=== PATIENT | female | born 1985 | race Caucasian/White ===

== ENCOUNTER 2020-10-06 19:09 | Emergency (ER) | payer BC ==
[2020-10-06] MEDS ORDERED: Aspirin 325 MG Tab.EC PO ONE (19:17)
[2020-10-06] MEDS ORDERED: Dexamethasone 4 MG/ML SDV IVPUSH ONE (19:18)
[2020-10-06] MEDS ORDERED: Sodium Chloride 0.9% 1,000 ML IV SCH (19:30)
[2020-10-06] MEDS ORDERED: Iopamidol 755 Mg/ML 100 ML Bottle IV ONE (19:32)
--- NOTE | 2020-10-06 19:51 | EDM.PDOC ---
ED HPI GENERAL MEDICAL PROBLEM - General Chief Complaint: Respiratory Problem Stated Complaint: SOB Time Seen by Provider: 10/06/20 19:20 Source of Information: Reports: Patient, Other (Clinic records ) History Limitations: Reports: No Limitations - History of Present Illness INITIAL COMMENTS - FREE TEXT/NARRATIVE: Sent in from clinic States she was diagnosed with COVID 09/19 had symptoms from09/18, unsure of actual day of exposure since then had been doing well , then developed sob that got worse today unsure of PE Oxygen level was 99% on RA Onset: Today Duration: Hour(s):, Getting Worse Location: Reports: Generalized Quality: Reports: Ache Severity: Mild Improves with: Reports: None Worsens with: Reports: Breathing, Movement Context: Reports: Activity Associated Symptoms: Reports: Headaches, Loss of Appetite, Malaise - Related Data Allergies Allergy/AdvReac Type Severity Reaction Status Date / Time No Known Allergies Allergy Verified 10/06/20 19:51 Home Meds: Home Meds Ibuprofen [Motrin] 600 mg PO TID PRN 07/12/15 [History] Omeprazole 40 mg PO DAILY 07/12/15 [History] norgestimate-ethinyl estradioL [Tri-Linyah Tablet] 1 each PO DAILY 07/12/15 [History] valACYclovir [Valtrex] 2,000 mg PO BID PRN 07/12/15 [History] Multivitamin [Multi-Day Vitamins] 1 each PO DAILY 07/13/15 [History] Sucralfate [Carafate] 1 gm PO QID 07/13/15 [History] Aspirin 81 mg PO BEDTIME #30 tab.chew 10/06/20 [Rx] Azithromycin [Zithromax] 500 mg PO DAILY #5 tab 10/06/20 [Rx] dexAMETHasone [Dexamethasone] 8 mg PO DAILY 10 Days #20 tab 10/06/20 [Rx] guaiFENesin [Mucus Relief ER] 600 mg PO BID #20 tab.er.12h 10/06/20 [Rx] ED ROS GENERAL - Review of Systems Review Of Systems: See Below Constitutional: Reports: No Symptoms HEENT: Reports: No Symptoms Respiratory: Reports: No Symptoms Cardiovascular: Reports: No Symptoms Endocrine: Reports: No Symptoms GI/Abdominal: Reports: No Symptoms ED EXAM, GENERAL - Physical Exam Exam: See Below Exam Limited By: No Limitations General Appearance: Alert, WD/WN, No Apparent Distress, Anxious, Other (hyperventilatin) Eye Exam: Bilateral Eye: EOMI Ears: Normal External Exam Ear Exam: Bilateral Ear: TM Dull Nose: Normal Inspection Throat/Mouth: Normal Oropharynx Head: Atraumatic, Normocephalic Neck: Supple, Non-Tender Respiratory/Chest: No Respiratory Distress, Lungs Clear, Normal Breath Sounds Cardiovascular: Normal Peripheral Pulses, Regular Rate, Rhythm GI/Abdominal: Soft, Non-Tender Extremities: Normal Range of Motion, No Pedal Edema Neurological: Alert, Oriented, CN II-XII Intact Psychiatric: Anxious Skin Exam: Warm, Dry, Intact Course - Vital Signs Last Recorded V/S: Last Vital Signs Temp Pulse 73 10/06/20 20:40 Resp 18 10/06/20 20:40 BP 130/75 10/06/20 20:40 Pulse Ox 100 10/06/20 20:40 - Orders/Labs/Meds Orders: Active Orders 24 hr Category Date Time Status Ang Chest [CT] Stat Exams 10/06/20 19:18 Taken Sodium Chloride 0.9% [Normal Saline] 1,000 ml Med 10/06/20 19:30 Active IV ASDIRECTED Medication Orders Sodium Chloride (Normal Saline) 1,000 mls @ 999 mls/hr IV ASDIRECTED PAVAN Last Admin: 10/06/20 19:40 Dose: 999 mls/hr Documented by: JOSE Labs: Laboratory Tests 10/06/20 10/06/20 10/06/20 Range/Units 19:25 19:25 19:25 WBC 12.0 H (3.0-10.3) x10-3/uL RBC 4.79 (3.60-5.20) x10(6)uL Hgb 13.2 (11.4-15.5) g/dL Hct 40.6 (34.2-48.2) % MCV 84.9 (76.7-100.5) fL MCH 27.6 (23.9-33.9) pg MCHC 32.5 (31.9-34.8) g/dL RDW 13.0 (12.3-16.5) % Plt Count 383 (151-488) x10(3)uL MPV 7.3 (7.1-12.4) fL Neut % (Auto) 54.0 (30.8-76.2) % Lymph % (Auto) 36.7 (18.4-52.1) % [place] % (Auto) 8.0 (4.4-15.7) % Eos % (Auto) 0.8 (0.6-8.1) % Baso % (Auto) 0.5 (0.2-1.5) % Neut # (Auto) 6.5 H (1.5-6.3) x10-3/uL Lymph # (Auto) 4.4 (1.0-4.4) x10-3/uL [place] # (Auto) 1.0 (0.3-1.0) x10-3/uL Eos # (Auto) 0.1 (0.0-0.8) x10-3/uL Baso # (Auto) 0.1 (0.0-0.1) x10-3/uL PT 10.3 (9.0-11.1) sec INR 0.95 L (1.00-1.24) D-Dimer, Quantitative 0.27 (0.0-0.59) mg/LFEU Sodium 138 (135-145) mmol/L Potassium 3.2 L (3.5-5.3) mmol/L Chloride 101 (100-110) mmol/L Carbon Dioxide 25 (21-32) mmol/L BUN 8 (7-18) mg/dL Creatinine 0.9 (0.55-1.02) mg/dL Est Cr Clr Drug Dosing TNP Estimated GFR (MDRD) > 60 (>60) BUN/Creatinine Ratio 8.9 L (9-20) Glucose 104 (80-116) mg/dL Calcium 9.4 (8.6-10.2) mg/dL Total Bilirubin 0.5 (0.1-1.3) mg/dL AST 22 (5-25) IU/L ALT 40 H (12-36) U/L Alkaline Phosphatase 63 (56-112) IU/L Total Protein 8.3 H (6.0-8.0) g/dL Albumin 4.6 (3.5-5.2) g/dL Globulin 3.7 g/dL Albumin/Globulin Ratio 1.2 Meds: Medications Generic Name Dose Route Start Last Admin Trade Name Freq PRN Reason Stop Dose Admin Sodium Chloride 1,000 mls @ 999 mls/hr 10/06/20 19:30 10/06/20 19:40 Normal Saline IV 999 mls/hr ASDIRECTED PAVAN Administration Discontinued Medications Generic Name Dose Route Start Last Admin Trade Name [place] PRN Reason Stop Dose Admin Aspirin 325 mg 10/06/20 19:17 10/06/20 19:28 Ecotrin PO 10/06/20 19:18 325 mg ONETIME ONE Administration Dexamethasone 8 mg 10/06/20 19:18 10/06/20 20:02 Decadron IVPUSH 10/06/20 19:19 8 mg ONETIME ONE Administration Iopamidol 100 ml 10/06/20 19:32 10/06/20 20:14 Isovue-370 (76%) IV 10/06/20 19:33 92 ml ONETIME ONE Administration Potassium Chloride 40 meq 10/06/20 20:22 10/06/20 20:25 Klor-Con M20 PO 10/06/20 20:23 40 meq ONETIME ONE Administration - Re-Assessments/Exams Free Text/Narrative Re-Assessment/Exam: 10/06/20 21:20 pt had labs done did not require oxygen Creatinine level was normal had CT chest to check for PE: negative pt discharged home Departure - Departure Time of Disposition: 21:30 Disposition: Home, Self-Care 01 Clinical Impression: COVID-19 virus infection, Hypokalemia, Bronchitis - Discharge Information *PRESCRIPTION DRUG MONITORING PROGRAM REVIEWED*: Not Applicable *COPY OF PRESCRIPTION DRUG MONITORING REPORT IN PATIENT ASHELY: Not Applicable Prescriptions: Aspirin 81 mg PO BEDTIME #30 tab.chew dexAMETHasone [Dexamethasone] 8 mg PO DAILY 10 Days #20 tab guaiFENesin [Mucus Relief ER] 600 mg PO BID #20 tab.er.12h Azithromycin [Zithromax] 500 mg PO DAILY #5 tab Instructions: COVID-19 Frequently Asked Questions, Acute Bronchitis, Adult, [id number], COVID-19: How to Protect Yourself and Others - CDC, Community- Acquired Pneumonia, Adult, [id number], Prevent the Spread of COVID-19 if You Are Sick - CDC Referrals: Mango Forrest MD [Primary Care Provider] - Forms: ED Department Discharge Additional Instructions: 1) increase fluid intake 2) Take Viatamin C , Zinc supplements 3) Follow up with your doctor as needed Sepsis Event Note (ED) - Focused Exam Vital Signs: Vital Signs Pulse Resp BP Pulse Ox 10/06/20 20:40 73 18 130/75 100 10/06/20 19:15 76 18 150/101 H 100 - My Orders Last 24 Hours: My Active Orders 10/06/20 19:18 Ang Chest [CT] Stat 10/06/20 19:30 Sodium Chloride 0.9% [Normal Saline] 1,000 ml IV ASDIRECTED - Assessment/Plan Last 24 Hours: My Active Orders 10/06/20 19:18 Ang Chest [CT] Stat 10/06/20 19:30 Sodium Chloride 0.9% [Normal Saline] 1,000 ml IV ASDIRECTED
[2020-10-06] MEDS ORDERED: Potassium Chloride 20 MEQ Tab.ER PO ONE (20:22)
[2020-10-07 04:57] VITALS: BP 141/75; PULSE 66
== END 2020-10-06 21:45 | disposition home or self-care (01) ==
LOC: FB.ED 19:09
DX: U07.1 COVID-19 (principal); J40 Bronchitis, not specified as acute or chronic; E87.6 Hypokalemia; Z79.899 Other long term (current) drug therapy
CPT/HCPCS: 36415; 71275; 80053; 85025; 85379; 85610; 96374; 99285; A9270; J1100; J7030; Q9967